=== PATIENT | female | born 1955 | race Caucasian/White ===

== ENCOUNTER 2018-11-13 15:05 | Emergency (ER) | payer MEDICARE ==
[~2018-11-13] VITALS: Ht 149.9 cm; Wt 48.6 kg
[~2018-11-13 15:05] MED LIST: ABILIFY 10MG TA10 MG PO; AMBIEN 10MG10 M1 PO; CELEXA; CYMBALTA 60MG60 MG PO; ESTRACE0.5 MG PO; ESTROGEL0.06% TD; GABAPENTIN; KLONOPIN1 MG PO; PAMELOR PO; PERCOCET 500 MG1 TAB PO; PREDNISONE 5MG5 MG; PROVIGIL200 MG PO
[2018-11-13 15:12] VITALS: TEMP 98.4
[2018-11-13 16:09] LABS: COLLECTION METHOD CLEAN CATCH
[2018-11-13 16:15] LABS: BASO # 0.1 (0.0-0.2); EOS # 0.2 (0.0-0.7); EOS % 2.2 % (0-4.0); GRAN % 54.9 % (42.2-75.2); HEMATOCRIT 37.8 % (37.0-47.0); LYMPH # 2.4 (1.2-3.4); LYMPH % 33.9 % (20.0-51.0); MEAN CELL VOLUME 83 fl (80.0-100.0); MEAN CORPUSCULAR HEMOGLOBIN 26 pg (27.0-31.0); MEAN CORPUSCULAR HGB CONC 32 g/dl (33.0-37.0); MEAN PLATELET VOLUME 8.5 fl (7.4-10.4); MONO # 0.6 (0.1-0.6); MONO % 7.9 % (1.7-9.3); PLATELET COUNT 297 K/mm3 (130-400); RED BLOOD COUNT 4.56 M/mm3 (4.10-5.30); REDCELL DISTRIBUTION WIDTH-CV 15.9 % (11.5-14.5)
[2018-11-13] MEDS ORDERED: EXCEDRIN1 TAB PO (16:29)
[2018-11-13 16:30] LABS: ALANINE AMINOTRANSFERASE 22 U/L (9-52); ALBUMIN 4.4 gm/dL (3.5-5.0); ALKALINE PHOSPHATASE 60 U/L (50-136); ANION GAP 11 mmol/L (7-16); AST,SGOT 32 U/L (15-37); BILIRUBIN,TOTAL 0.4 mg/dL (0.0-1.0); BLOOD UREA NITROGEN 11 mg/dL (7-17); CALCIUM 9.4 mg/dL (8.4-10.2); CARBON DIOXIDE 25 mmol/L (22-30); CHLORIDE 104 mmol/L (98-107); CREATININE, serum 0.67 (0.52-1.25); GLUCOSE 84 mg/dL (74-106); LIPASE 138 U/L (23-300); POTASSIUM 3.8 mmol/L (3.4-5.0); SODIUM 140 mmol/L (137-145); TOTAL PROTEIN 7.1 gm/dL (6.4-8.2)
[2018-11-13] MEDS ORDERED: FLEXERIL 1010 MG/TAB PO (16:30)
[2018-11-13] MEDS ORDERED: ESTRACE0.1 MG/GM VG (16:30)
[2018-11-13] MEDS ORDERED: ATARAX50 MG PO (16:31)
[2018-11-13] MEDS ORDERED: PRILOSEC 20MG20 MG PO (16:32)
[2018-11-13 16:35] LABS: C-REACTIVE PROTEIN < 0.5 mg/dL (0.0-0.9)
[2018-11-13] MEDS ORDERED: ROXICODONE 55 MG/TAB PO (16:38)
[2018-11-13] MEDS ORDERED: ZOFRAN 4MG T4 MG/TAB PO (16:38)
[2018-11-13] MEDS ORDERED: DESYREL 50MG50 MG PO (16:39)
[2018-11-13] MEDS ORDERED: MAXALT MLT10 MG/TAB PO (16:39)
[2018-11-13 16:45] LABS: MUCOUS Present /lpf; PH 5 (5-8); URINE APPEARANCE Clear; URINE BACTERIA None Seen /hpf; URINE BILIRUBIN Negative (NEGATIVE); URINE BLOOD Negative (NEGATIVE); URINE COLOR Yellow; URINE GLUCOSE Negative (NEGATIVE); URINE KETONE Negative (NEGATIVE); URINE LEUKOCYTE ESTERASE 2+ (NEGATIVE); URINE NITRATE Negative (NEGATIVE); URINE PROTEIN(semi-quant) Negative (NEGATIVE); URINE UROBILINOGEN Negative (NEGATIVE)
[2018-11-13] MEDS ORDERED: PYRIDIUM200 M1 PO (17:53)
[2018-11-13] MEDS ORDERED: OMNICEF 300MG300 MG PO (17:53)
[2018-11-13 18:35] VITALS: BP 145/64; PULSE 72
== END 2018-11-13 18:41 | disposition home or self-care (01) ==
LOC: COL.ER 15:05
PROVIDERS: Emergency Medicine
DX: N39.0 Urinary tract infection, site not specified (principal); M79.7 Fibromyalgia; K58.9 Irritable bowel syndrome, unspecified; Z90.49 Acquired absence of other specified parts of digestive tract; Z90.710 Acquired absence of both cervix and uterus; Z98.890 Other specified postprocedural states
CPT/HCPCS: J1200; J2405; J2930; J3010; J7030; Q9967

== ENCOUNTER 2020-11-23 11:09 | Emergency (ER) | payer MEDICARE, OTHER ==
[~2020-11-23] VITALS: Ht 152.4 cm; Wt 52.3 kg
[~2020-11-23 11:09] MED LIST changes: +ATARAX50 MG PO; +DESYREL 50MG50 MG PO; +ESTRACE0.1 MG/GM VG; +EXCEDRIN1 TAB PO; +FLEXERIL 1010 MG/TAB PO; +MAXALT MLT10 MG/TAB PO; +OMNICEF 300MG300 MG PO; +PRILOSEC 20MG20 MG PO; +PYRIDIUM200 M1 PO; +ROXICODONE 55 MG/TAB PO; +ZOFRAN 4MG T4 MG/TAB PO
[2020-11-23 11:29] VITALS: TEMP 999.2
[2020-11-23 12:57] LABS: BASO # 0.1 (0.0-0.2); EOS # 0.1 (0.0-0.7); EOS % 1.9 % (0-4.0); GRAN # 4.5 (1.4-6.5); GRAN % 62.8 % (42.2-75.2); HEMATOCRIT 40.6 % (37.0-47.0); HEMOGLOBIN 13.1 g/dl (12.5-16.0); LYMPH % 27.3 % (20.0-51.0); MEAN CELL VOLUME 89 fl (80.0-100.0); MEAN CORPUSCULAR HEMOGLOBIN 29 pg (27.0-31.0); MEAN CORPUSCULAR HGB CONC 32 g/dl (33.0-37.0); MEAN PLATELET VOLUME 8.9 fl (7.4-10.4); MONO # 0.5 (0.1-0.6); MONO % 6.7 % (1.7-9.3); PLATELET COUNT 313 K/mm3 (130-400); RED BLOOD COUNT 4.59 M/mm3 (4.10-5.30); REDCELL DISTRIBUTION WIDTH-CV 14.7 % (11.5-14.5)
[2020-11-23 12:59] LABS: ALANINE AMINOTRANSFERASE 21 U/L (4-34); ALBUMIN 4.3 gm/dL (3.5-5.0); ALKALINE PHOSPHATASE 62 U/L (50-136); ANION GAP 8 mmol/L (7-16); AST,SGOT 38 U/L (15-37); BILIRUBIN,TOTAL < 0.1 mg/dL (0.0-1.0); BLOOD UREA NITROGEN 11 mg/dL (7-17); CALCIUM 9.2 mg/dL (8.4-10.2); CARBON DIOXIDE 28 mmol/L (22-30); CHLORIDE 102 mmol/L (98-107); CREATININE, serum 0.76 (0.52-1.25); GLUCOSE 92 mg/dL (74-106); POTASSIUM 3.9 mmol/L (3.4-5.0); SODIUM 138 mmol/L (137-145); TOTAL PROTEIN 7.5 gm/dL (6.4-8.2)
[2020-11-23 13:11] LABS: COLLECTION METHOD CLEAN CATCH
[2020-11-23 13:23] LABS: PH 6 (5-8); SQUAMOUS EPITHELIAL 0-2 /hpf; URINE APPEARANCE Clear; URINE BACTERIA None Seen /hpf; URINE BILIRUBIN Negative (NEGATIVE); URINE BLOOD Negative (NEGATIVE); URINE COLOR Straw; URINE GLUCOSE Negative (NEGATIVE); URINE KETONE Negative (NEGATIVE); URINE LEUKOCYTE ESTERASE Negative (NEGATIVE); URINE NITRATE Negative (NEGATIVE); URINE PROTEIN(semi-quant) Negative (NEGATIVE); URINE RBC 0-2 /hpf; URINE UROBILINOGEN Negative (NEGATIVE)
[2020-11-23 14:38] LABS: GLUCOSE,CSF 52 mg/dL (40-70)
[2020-11-23 14:45] LABS: CSF APPEARANCE CLEAR; CSF COLOR COLORLESS
[2020-11-23 14:55] LABS: CSF MONONUCLEAR 78 % (70-100); CSF POLYMORPHONUCLEAR 22 % (0-6)
[2020-11-23 14:56] LABS: CSF APPEARANCE CLEAR; CSF COLOR COLORLESS; CSF MONONUCLEAR 100 % (70-100); CSF POLYMORPHONUCLEAR 0 % (0-6)
[2020-11-23 15:01] LABS: CSF RBC 2 /mm3 (0-0)
[2020-11-23 15:02] LABS: CSF RBC 165 /mm3 (0-0)
[2020-11-23 16:30] LABS: TOTAL PROTEIN,CSF 35 mg/dL (15-45)
[2020-11-23] MEDS ORDERED: OMNICEF 300MG300 MG PO (16:59)
[2020-11-23] MEDS ORDERED: FLOXIN 10 ML10 ML OT (17:00)
[2020-11-23] MEDS ORDERED: FLEXERIL 1010 MG/TAB PO (17:00)
[2020-11-23 17:30] VITALS: BP 130/61; PULSE 80
== END 2020-11-23 17:40 | disposition home or self-care (01) ==
LOC: COL.ER 11:09
PROVIDERS: Physician Assistant
DX: H66.011 Acute suppurative otitis media with spontaneous rupture of ear drum, right ear (principal); J32.9 Chronic sinusitis, unspecified; M54.2 Cervicalgia; M79.7 Fibromyalgia; Z79.891 Long term (current) use of opiate analgesic; Z88.0 Allergy status to penicillin; Z88.1 Allergy status to other antibiotic agents
CPT/HCPCS: J0696; J1885; J2270; J2405; J7030

== ENCOUNTER → 2021-09-15 | Outpatient (CLI) | payer MEDICARE, OTHER ==
[~2021-09-15] MED LIST changes: +FLOXIN 10 ML10 ML OT
== END ==
LOC: MHCPAIN 13:29
DX: M47.897 Other spondylosis, lumbosacral region (principal); M54.50 Low back pain, unspecified; M53.3 Sacrococcygeal disorders, not elsewhere classified; G89.29 Other chronic pain
CPT/HCPCS: G0463